=== PATIENT | female | born 1930 | race Caucasian/White ===

== ENCOUNTER 2016-07-04 06:22 | Observation (INO) | payer OTHER ==
[~2016-07-04] VITALS: Ht 160 cm; Wt 55.2 kg
[~2016-07-04 06:22] MED LIST: ASPIR 8181 M1 PO; ATORVASTATIN CA20 MG PO; CATAPRES0.1 MG PO; CENTRUM SILVER1 EAC3 PO; HUMALOG100 UNIT/2 SC; LEVEMIR FL100 UNITS/ SC; LISINOPRIL-HCT1 EAC3 PO; METOPROLOL SUC100 MG PO; RANITIDINE HCL150 M1 PO
[2016-07-04 06:54] LABS: EOSINOPHIL COUNT 0.1 K/uL (0-0.3); HEMATOCRIT 40.6 % (36.0-46.0); IMMATURE GRANULOCYTE (%) 0.2 % (0.0-0.7); INSTRUMENT ABS NEUTROPHIL CT 4.1 K/uL; LYMPHOCYTE COUNT 1.6 K/uL (1.0-2.8); MCH 29.8 PG (29.0-34.0); MCHC 32.3 G/DL (30.0-36.0); MCV 92.3 FL (83-99); MEAN PLAT.VOLUME 10.9 uM^3 (9.5-12.4); MONOCYTE COUNT 0.2 K/uL (0-0.8); NEUTROPHIL (%) 67.5 % (45-76); NEUTROPHIL COUNT 4.1 K/uL (1.8-6.4); PLATELET COUNT 223 K/uL (156-360); RBC DIS.WIDTH-CV 12.4 % (11.8-14.6); RBC DIS.WIDTH-SD 42.3 % (39-53); WHITE BLOOD COUNT 6.1 K/uL (4.1-10.2)
[2016-07-04 07:26] LABS: ANION GAP 10 MEQ/L (2-14); CHLORIDE 106 MEQ/L (99-109); GFR ESTIMATE (CALCULATED) 45 mL/min/; GLUCOSE 86 mg/dL (70-99); POTASSIUM 3.9 MEQ/L (3.7-5.4); SAMPLE HEMOLYSIS CHECK 0; SAMPLE ICTERIC CHECK 0; SAMPLE LIPEMIA CHECK 0; SODIUM 138 MEQ/L (136-147); UREA NITROGEN (BUN) 29 mg/dL (9-23)
[2016-07-04 07:27] LABS: TROP-I INTERPRETATION NEGATIVE; TROPONIN-I < 0.01 ng/mL (0.0-0.30)
[2016-07-04 08:40] LABS: ADD MIUA? NO; BILIRUBIN NEGATIVE; BLOOD NEGATIVE; COLOR STRAW ((YELLOW)); GLUCOSE (STRIP) NEGATIVE; KETONES NEGATIVE; LEUKOCYTES NEGATIVE; NITRITE NEGATIVE; PROTEIN (STRIP) NEGATIVE; SPECIFIC GRAVITY 1.005 (1.000-1.030); UCUL ADDED? NO; UROBILINOGEN 0.2 MG/DL (0.2-1.0)
[2016-07-04] MEDS ORDERED: CREON 241 CAPSULE PO ×2 (12:12)
[2016-07-04] MEDS ORDERED: LIPITOR20 MG PO (12:13)
[2016-07-04] MEDS ORDERED: LISINOPRIL10 MG PO (12:13)
[2016-07-04] MEDS ORDERED: TOPROL XL50 MG PO (12:14)
[2016-07-04] MEDS ORDERED: LEVEMIR FL100 UNIT/1 SC (12:15)
[2016-07-04] MEDS ORDERED: HUMALOG100 UNIT/2 SC (12:16)
[2016-07-04] MEDS ORDERED: EYE DROPS BOTH EYES (12:18)
[2016-07-04] MEDS ORDERED: SPIRONOLACTONE25 MG PO (12:19)
[2016-07-04] MEDS ORDERED: BUMEX0.5 MG PO (12:20)
[2016-07-04] MEDS ORDERED: CORTIZONE-10 PL57 GM TP (12:23)
[2016-07-04 12:24] VITALS: BP 216/93
[2016-07-04 15:35] VITALS: BP 126/75
[2016-07-04 17:58] LABS: TROP-I INTERPRETATION NEGATIVE; TROPONIN-I 0.05 ng/mL (0.0-0.30)
[2016-07-04 19:00] VITALS: BP 186/93
[2016-07-04 23:13] LABS: POINT-OF-CARE METER ID UU13113831
[2016-07-04 23:37] LABS: TROP-I INTERPRETATION NEGATIVE; TROPONIN-I 0.03 ng/mL (0.0-0.30)
[2016-07-05 01:10] VITALS: BP 147/67
[2016-07-05 04:00] VITALS: BP 150/68
[2016-07-05 08:32] LABS: POINT-OF-CARE METER ID UU13113831
[2016-07-05] MEDS ORDERED: LISINOPRIL20 MG PO (09:07)
[2016-07-05 10:04] VITALS: BP 170/77
== END 2016-07-05 11:05 | disposition home or self-care (01) ==
LOC: EME → EDBD 06:22 → EDOF 09:58 → 5WEST 09:58 → EDOF 09:58 → 5WEST 12:16
PROVIDERS: Emergency Medicine; Hospitalist; Internal Medicine
DX: I16.0 Hypertensive urgency (principal); I10 Essential (primary) hypertension; R07.9 Chest pain, unspecified; E11.9 Type 2 diabetes mellitus without complications; E78.5 Hyperlipidemia, unspecified; Z79.4 Long term (current) use of insulin
CPT/HCPCS: 71010; 80048; 81003; 82948; 84484; 85025; 93005; 99281; 99285; G0378; J0360; J1650; J1815; J7040

== ENCOUNTER 2016-07-14 08:48 | Emergency (ER) | payer OTHER ==
[~2016-07-14] VITALS: Ht 160 cm; Wt 55.7 kg
[~2016-07-14 08:48] MED LIST changes: +BUMEX0.5 MG PO; +CORTIZONE-10 PL57 GM TP; +CREON 241 CAPSULE PO; +EYE DROPS BOTH EYES; +LEVEMIR FL100 UNIT/1 SC; +LIPITOR20 MG PO; +LISINOPRIL10 MG PO; +LISINOPRIL20 MG PO; +SPIRONOLACTONE25 MG PO; +TOPROL XL50 MG PO
[2016-07-14 09:08] LABS: POINT-OF-CARE METER ID UU14100415; POINT-OF-CARE USER ID AHSDISBJH
[2016-07-14] MEDS ORDERED: NORVASC2.5 MG PO (09:57)
[2016-07-14 10:22] LABS: POINT-OF-CARE METER ID UU13113702
[2016-07-14 10:26] VITALS: BP 161/68
== END 2016-07-14 10:19 | disposition home or self-care (01) ==
LOC: EME → EDBD 08:48 → EME 10:19
PROVIDERS: Emergency Medicine
DX: I10 Essential (primary) hypertension (principal); Z86.73 Personal history of transient ischemic attack (TIA), and cerebral infarction without residual deficits
CPT/HCPCS: 82948; 99281; 99285